=== PATIENT | female | born 1980 | race American Indian/Alaskan Native ===

== ENCOUNTER 2018-07-19 15:18 | Emergency (ER) | payer OTHER ==
--- NOTE | 2018-07-19 15:46 | Emergency Department Report ---
Blank Doc - Documentation Documentation: This is a 38-year-old female that presents with right knee and thigh pain s/p fall. This initial assessment/diagnostic orders/clinical plan/treatment(s) is/are subject to change based on patient's health status, clinical progression and re- assessment by fellow clinical providers in the ED. Further treatment and workup at subsequent clinical providers discretion. Patient/guardians urged not to elope from the ED as their condition may be serious if not clinically assessed and managed. Initial orders include: 1- Patient sent to [facility] for further evaluation and treatment 2- xray
--- NOTE | 2018-07-19 16:31 | XRay Report ---
PROCEDURE: XR FEMUR 2+V RT TECHNIQUE: 4 views of the right femur HISTORY: pain s/p fall COMPARISONS: No priors FINDINGS: There is no evidence of acute fracture or dislocation. Alignment is anatomic. IMPRESSION: . No acute fracture or dislocation of the right femur. This document is electronically signed by Jesus Coello MD., July 19 2018 04:29:36 PM ET
--- NOTE | 2018-07-19 16:34 | XRay Report ---
PROCEDURE: XR KNEE 3V RT TECHNIQUE: 3 views of the right knee HISTORY: pain s/p fall COMPARISONS: No priors FINDINGS: No evidence of acute fracture or dislocation. Alignment is anatomic. Joint spaces are preserved. No evidence of joint effusion. IMPRESSION: . Normal radiographic appearance of the right knee. This document is electronically signed by Jesus Coello MD., July 19 2018 04:32:11 PM ET
[2018-07-19] MEDS ORDERED: DELTASONE PO ONE (17:46)
[2018-07-19] MEDS ORDERED: TORADOL IM ONE (17:46)
--- NOTE | 2018-07-19 18:04 | Emergency Department Report ---
HPI - General Chief Complaint: Extremity Injury, Lower Time Seen by Provider: 07/19/18 15:45 - HPI HPI: This is a 38-year-old female who presents to ED complaining of right knee pain status post trip and fall this morning. Patient states she was walking when she accidentally missed a step and tripped and fell. Patient denies falling and hitting her head, loss of consciousness, she states she was able to get up after the incident. ED Past Medical Hx - Past Medical History Previous Medical History?: No - Surgical History Past Surgical History?: Yes Additional Surgical History: Ectopic - Social History Smoking Status: Never Smoker Substance Use Type: None - Medications Home Medications: Home Medications Medication Instructions Recorded Confirmed Last Taken Type Cyclobenzaprine [Flexeril] 10 mg PO QHS PRN #20 tablet 07/19/18 Unknown Rx Ibuprofen [Motrin] 800 mg PO Q8HR #30 tablet 07/19/18 Unknown Rx ED Review of Systems ROS: Stated complaint: RT LEG INJURY/PAIN Other details as noted in HPI Comment: All other systems reviewed and negative Physical Exam - Physical Exam Vital Signs: Vital Signs 07/19/18 15:47 Temperature 98.7 F Pulse Rate 102 H Respiratory 20 Rate Blood Pressure 112/75 O2 Sat by Pulse 100 Oximetry Physical Exam: GENERAL: Alert and oriented x3, no apparent distress, Normal Gait, atraumatic. HEAD: Head is normocephalic and a-traumatic. BACK: Full range of motion, no spinal tenderness, nontender to palpation. EXTREMITIES/MUSCULOSKELETAL: No cyanosis, clubbing, rash, lesions or edema of the knees bilaterally. Full ROM bilaterally. UE/LE Pulses 2+ bilaterally. LE and UE 5+ strength bilaterally, negative valgus and varus test of bilateral knees, NEUROLOGIC: The patient is cooperative with no focal neurologic deficits. Cranial nerves II through XII are grossly intact. Normal speech. Normal sensation in bilateral upper and lower extremities, No loss of sensation SKIN: Warm and dry, No lesions, No ulceration or induration present. ED Course Vital Signs 07/19/18 15:47 Temperature 98.7 F Pulse Rate 102 H Respiratory 20 Rate Blood Pressure 112/75 O2 Sat by Pulse 100 Oximetry ED Medical Decision Making - Radiology Data Radiology results: report reviewed, image reviewed ECHNIQUE: 3 views of the right knee HISTORY: pain s/p fall COMPARISONS: No priors FINDINGS: No evidence of acute fracture or dislocation. Alignment is anatomic. Joint spaces are preserved. No evidence of joint effusion. IMPRESSION: . Normal radiographic appearance of the right knee. This document is electronically signed by Jesus Coello MD., July 19 2018 04:32:11 PM ET Transcribed By: KAREEM Dictated By: JESUS COELLO MD Electronically Authenticated By: JESUS COELLO MD Signed Date/Time: 07/19/18 3474 - Medical Decision Making 38-year-old female presents with knee pain status post fall Vital signs are normal patient has no acute distress. X-ray shows no acute fractures or dislocations. Discussed findings with the patient. Patient received Toradol and prednisone in the ED. Discussed follow-up with primary care physician. Critical care attestation.: If time is entered above; I have spent that time in minutes in the direct care of this critically ill patient, excluding procedure time. ED Disposition Clinical Impression: Fall from slip, trip, or stumble Disposition: DC- TO HOME OR SELFCARE Is pt being admited?: No Does the pt Need Aspirin: No Condition: Stable Instructions: Knee Pain (ED), Arthralgia (ED), Knee Exercises (GEN) Additional Instructions: Make sure to follow up with the primary care physician as discussed. Take all your medications as you've been prescribed. If you have any worsening symptoms or develop new symptoms please return to ED immediately. Prescriptions: Cyclobenzaprine [Flexeril] 10 mg PO QHS PRN #20 tablet PRN Reason: Muscle Spasm Ibuprofen [Motrin] 800 mg PO Q8HR #30 tablet Referrals: LAMONTE RICHARDS MD [Primary Care Provider] - 3-5 Days NOEMI NERI MD [Staff Physician] - 3-5 Days Forms: Work/School Release Form Time of Disposition: 18:05
[2018-07-19 18:31] VITALS: BP 115/64
== END 2018-07-19 18:30 | disposition home or self-care (01) ==
LOC: ED 15:18
DX: M25.561 Pain in right knee (principal); W01.0XXA Fall on same level from slipping, tripping and stumbling without subsequent striking against object, initial encounter; Y93.89 Activity, other specified; Y92.89 Other specified places as the place of occurrence of the external cause; Y99.8 Other external cause status
CPT/HCPCS: 73552; 73562; 96372; 99283; J1885; J7512